=== PATIENT | female | born 2005 | race African-American/Black ===

== ENCOUNTER 2025-08-02 14:14 | Inpatient (IN) | payer BC, SELFPAY ==
[2025-08-02 14:25] VITALS: BP 120/70; PULSE 80; O2SAT 100; BMI 20.1
[2025-08-02 14:38] VITALS: BP 133/70; PULSE 81; RESP 18; TEMP 37.1; O2SAT 100
[2025-08-02 14:51] LABS: MANUAL DIFF FLAG NO
[2025-08-02 14:54] LABS: Hematocrit 36.1 % (37.0-47.0); Hemoglobin 12.0 g/dl (12.0-16.0); Imm Gran Abs Auto 0.01 X10*3/uL (0.00-0.03); Imm Gran Pct Auto 0.2 % (0.0-0.4); Lymphocytes Absolute Auto 2.4 X10*3/uL (1.2-4.9); Mean Corpuscular HGB Conc 33.2 g/dl (31.0-35.0); Mean Corpuscular Hemoglobin 29.1 pg (27.0-33.0); Mean Corpuscular Volume 87.6 fL (80.0-98.0); NRBC Abs Auto 0.000 X10*3/uL (0.0-0.012); NRBC Pct Auto 0.0 /100WBC (0.0-0.2); Platelet Count 238 X10*3/uL (160-400); Red Blood Count 4.12 X10*6/uL (4.20-5.50); UPreg QC Valid YES; White Blood Count 4.3 X10*3/uL (4.8-10.8)
[2025-08-02 14:55] LABS: Appearance Urine Clear; Glucose Urine UA Negative (Negative); PH 8.0 (5.0-9.0); Specific Gravity - Urine 1.010 (1.005-1.025)
[2025-08-02 15:11] LABS: Cannabinoid Screen Urine POSITIVE (Not Detect)
[2025-08-02 15:16] LABS: Alanine Aminotransferase 11 U/L (0-31); Albumin Level 4.6 g/dL (3.5-5.0); Alkaline Phosphatase 42 U/L (39-117); Anion Gap 10 (12-20); Aspartate Amino Transferase 23 U/L (5-31); Blood Urea Nitrogen 6 mg/dL (9-16); Calcium 9.3 mg/dL (8.4-10.2); Carbon Dioxide 26 mmol/L (22-29); Chloride 109 mmol/L (96-108); Creatinine Clr Calc Pharmacy 85.1; Estimated Glomerular Filt Rate > 60; Potassium 4.0 mmol/L (3.3-5.1); Sodium 141 mmol/L (135-145); Total Protein 6.9 g/dL (6.5-8.0)
--- NOTE | 2025-08-02 15:33 | ED.GENADULT ---
HPI - General Adult General Chief complaint: Psychiatric Symptoms Stated complaint: SEC 12 BY [facility] FOR SI Time Seen by Provider: 08/02/25 14:25 Source: patient Mode of arrival: ambulatory Limitations: no limitations History of Present Illness ED Provider: KENNEDY Enrique HPI narrative: Chief Complaint: ?I?m having really strong suicidal thoughts and worsening depression.? History of Present Illness: The patient is a 20-year-old female presenting after reporting escalating suicidal thoughts accompanied by a worsening depressive state. She states that she has felt this way recently and has never felt comfortable discussing it before. When asked, she acknowledged having formulated a suicide plan in the past but did not elaborate on current intent or specifics. When asked about prior suicide attempts, the patient gave an unclear response regarding possible history of suicide attempt. She reports a known history of bipolar II disorder, anxiety, and depression.She denies any recent illness, denies auditory or visual hallucinations, and denies use of drugs, alcohol, or tobacco. No other acute medical complaints were voiced. Social history: Patient is a student at [employer] Related Data Home Medications ?Medication ?Instructions ?Recorded ?Confirmed norethindrone 1.5 mg-ethinyl 1 tab PO DAILY 08/02/25 08/02/25 estradiol 30 mcg(21)/iron 75 mg(7) tablet ( FE ()) Previous Rx's ?Medication ?Instructions ?Recorded hydroxyzine HCl 25 mg tablet 25 mg PO TID PRN Anxiety 30 days 08/05/25 #90 tabs lamotrigine 100 mg tablet 100 mg PO DAILY 30 days #30 tabs 08/05/25 mirtazapine 15 mg tablet 15 mg PO BEDTIME 30 days #30 tabs 08/05/25 trazodone 100 mg tablet 100 mg PO BEDTIME PRN insomnia 30 08/05/25 days #30 tabs Allergies Allergy/AdvReac Type Severity Reaction Status Date / Time No Known Allergies Allergy Verified 08/02/25 14:28 Review of Systems Review of Systems: Yes all other systems are reviewed and are negative PMFSH Past Medical History Attestation statement: The following information was validated with the patient. Source: old records reviewed and nursing notes reviewed Social History Social History Household Members: None Housing: Other Housing Other:: College D[employer] Patient Tobacco Use Status: Never used Tobacco Second Hand Smoke Exposure: No service: No Sexual orientation: Straight/Heterosexual Physical Exam ED Exam Exam: Appearance: Alert.? Oriented X3.? No acute distress.? Head: Normocephalic, atraumatic, no step-offs or deformities Eyes: Pupils equal, round and reactive to light.? Neck: Normal inspection.? Neck supple.? CVS: Normal heart rate and rhythm.? Pulses normal.? Respiratory: No respiratory distress.? Breath sounds normal.? Abdomen: Soft and nontender.? Skin: Skin warm and dry.? Normal skin color.? Normal skin turgor.? Extremities: No lower extremity edema.? No calf ttp. 5/5 strength to bilateral upper and lower extremities Back: No midline tenderness, no C-spine tenderness, full range of motion, no CVA tenderness bilaterally Neuro: Oriented X 3.? No motor deficit.? No sensory deficit. CN 2-12 intact Vital Signs: Vital Signs - 24 hr 08/02/25 14:38 08/02/25 21:12 08/03/25 06:38 Temperature 98.8 F 97.9 F 96.6 F L Pulse Rate 81 82 87 Respiratory Rate 18 Blood Pressure 133/70 110/75 94/58 L Pulse Oximetry 100 99 99 Oxygen Delivery Method Room Air Room Air Room Air BMI result Body Mass Index 20.1 vss Course Reevaluation(s) Reevaluation #1: CBC unremarkable no acute findings. Chemistry no acute findings eating intervention. UA clean. Marijuana positive. Ethanol negative. Time: 15:37 Reevaluation #2: Patient will be an adult BPH IPLOC placement section 12 in chart Time: 17:17 Reevaluation #3: 1:08 PM 08/03/2025 (Dr. Eddie Bergeron): Time: 13:08 Date: 08/03/25 Provider: Eddie Bergeron, Physician observation ended. Patient to be admitted as inpatient to psychiatry. Medications Administered Discontinued Medications Generic Name Dose Route Start Last Admin Trade Name Freq PRN Reason Stop Dose Admin Acetaminophen 650 mg 08/03/25 12:32 08/05/25 08:44 Acetaminophen 325 Mg Tablet PO 650 mg Q6H PRN Administration Headache/Pain, Scale 1-10 Hydroxyzine HCl 25 mg 08/02/25 17:17 12/11/25 15:21 Hydroxyzine Hcl 25 Mg Tablet PO 25 mg BID PRN Administration Anxiety Lamotrigine 50 mg 08/03/25 09:00 08/03/25 08:32 Lamotrigine 25 Mg Tablet PO 50 mg DAILY SANJUANITA Administration Lamotrigine 75 mg 08/04/25 09:00 08/04/25 09:17 Lamotrigine 25 Mg Tablet PO 75 mg DAILY SANJUANITA Administration Lamotrigine 100 mg 08/05/25 09:00 08/05/25 08:30 Lamotrigine 100 Mg Tablet PO 100 mg DAILY SANJUANITA Administration Mirtazapine 7.5 mg 08/02/25 21:00 08/03/25 20:54 Mirtazapine 7.5 Mg Tablet PO 7.5 mg BEDTIME SANJUANITA Administration Mirtazapine 15 mg 08/04/25 21:00 08/04/25 22:01 Mirtazapine 15 Mg Tablet PO 15 mg BEDTIME SANJUANITA Administration Trazodone HCl 100 mg 08/02/25 17:17 08/03/25 20:54 Trazodone Hcl 100 Mg Tablet PO 100 mg BEDTIME PRN Administration Insomnia Medical Decision Making Medical Decision Making [facility] Narrative: The patient presents with acute suicidal ideation on a background of bipolar II disorder, depression, and anxiety. She is medically stable for psychiatric evaluation. Problem #1: Suicidal Ideation / Worsening Depression Assessment: Patient endorses strong suicidal thoughts; past planning acknowledged, current specifics unclear. Unclear response regarding prior suicide attempt. No hallucinations or substance use reported. Plan: Care team consultation ? patient to be evaluated for safety, risk assessment, and disposition. Answer patient questions and provide emotional support. Problem #2: Bipolar II Disorder, Anxiety Assessment: Patient confirms prior diagnoses of bipolar II disorder and anxiety. Differential Diagnosis Differential Diagnoses: The differential diagnosis associated with the presentation includes Differential Diagnosis Psychiatric Symptoms: Major depressive episode (bipolar or unipolar) Mixed affective episode Medication-induced mood disorder Adjustment disorder Substance-induced mood disorder (despite denial of substance use) Primary psychotic disorder Admission/Observation Consideration of admission/observation: Escalation of care including admission/observation considered Lab Data [facility] Lab Attestation statement: I reviewed the patient's lab results. 08/02/25 14:43 08/04/25 13:00 Labs: Lab Results 08/02/25 08/02/25 Range/Units 14:43 14:44 WBC 4.3 L (4.8-10.8) X10*3/uL RBC 4.12 L (4.20-5.50) X10*6/uL Hgb 12.0 (12.0-16.0) g/dl Hct 36.1 L (37.0-47.0) % MCV 87.6 (80.0-98.0) fL MCH 29.1 (27.0-33.0) pg MCHC 33.2 (31.0-35.0) g/dl RDW 13.3 (11.0-16.0) % Plt Count 238 (160-400) X10*3/uL MPV 9.8 (9.4-12.3) fL Immature Gran % (Auto) 0.2 (0.0-0.4) % Neut % (Auto) 31.6 L (45-73) % Lymph % (Auto) 56.2 H (20-40) % [place] % (Auto) 9.7 (2-11) % Eos % (Auto) 1.6 (0-4) % Baso % (Auto) 0.7 (0-2) % Lymph # (Auto) 2.4 (1.2-4.9) X10*3/uL [place] # (Auto) 0.4 (0.1-1.2) X10*3/uL Eos # (Auto) 0.1 (0.0-0.4) X10*3/uL Baso # (Auto) 0.0 (0.0-0.2) X10*3/uL Abs Immat Gran (auto) 0.01 (0.00-0.03) X10*3/uL Absolute Neuts (auto) 1.4 L (2.0-8.3) x10*3/uL Absolute Nucleated RBC 0.000 (0.0-0.012) X10*3/uL Nucleated RBC % (auto) 0.0 (0.0-0.2) /100WBC Sodium 141 (135-145) mmol/L Potassium 4.0 (3.3-5.1) mmol/L Chloride 109 H (96-108) mmol/L Carbon Dioxide 26 (22-29) mmol/L Anion Gap 10 L (12-20) BUN 6 L (9-16) mg/dL Creatinine 0.83 (0.5-1.4) mg/dL Estim Creat Clear Calc 85.1 Estimated GFR > 60 Random Glucose 91 (60-115) mg/dL Calcium 9.3 (8.4-10.2) mg/dL Total Bilirubin 0.2 (0.0-1.0) mg/dL AST 23 (5-31) U/L ALT 11 (0-31) U/L Alkaline Phosphatase 42 (39-117) U/L Total Protein 6.9 (6.5-8.0) g/dL Albumin 4.6 (3.5-5.0) g/dL Urine Color Yellow Urine Appearance Clear Urine pH 8.0 (5.0-9.0) Ur Specific [place] 1.010 (1.005-1.025) Urine Protein Negative (Neg-Trace) mg/dL Urine Glucose (UA) Negative (Negative) mg/dL Urine Ketones Negative (Negative) mg/dL Urine Blood Negative (Negative) Urine Nitrite Negative (Negative) Ur Leukocyte Esterase Negative (Negative) Urine RBC 0-2 (0-2) /HPF Urine WBC 0-5 (0-5) /HPF Ur Squamous Epith Cells 0-2 (0-2) /HPF Urine Bacteria None Seen (None Seen) Hyaline Casts 0-2 (0-2) /LPF Urine Test NEGATIVE (NEGATIVE) Urine Opiates Screen Not Detected (Not Detect) Ur Buprenorphine Scrn Not Detected (Not Detect) ng/mL Ur Oxycodone Screen Not Detected (Not Detect) ng/mL Urine Methadone Screen Not Detected (Not Detect) ng/mL Urine Fentanyl Screen Not Detected (Not Detect) Ur Barbiturates Screen Not Detected (Not Detect) Ur Phencyclidine Scrn Not Detected (Not Detect) Ur Amphetamines Screen Not Detected (Not Detect) U Benzodiazepines Scrn Not Detected (Not Detect) Urine Cocaine Screen Not Detected (Not Detect) U Marijuana (THC) Screen POSITIVE H (Not Detect) Ethyl Alcohol < 10 mg/dL Independent Historian Clinical information obtained from an independent historian. History obtained from or confirmed by: EMS Critical Care Time Critical Care Time Critical Care Time: No Discharge Plan Discharge Clinical Impression: Depression, Bipolar disorder Patient Disposition: Admitted As Inpatient Interventions: Admission Worksheet (ED) Last Done: 12/10/25 13:32 Discharge Date/Time: 08/03/25 13:33
--- NOTE | 2025-08-02 16:32 | PC.NURSE ---
Pt is resting in her room and watching TV, she is guarded and states, she is fine. She is aware of the plan for IP admit and states she has been IP in the past.
[2025-08-02 21:12] VITALS: BP 110/75; PULSE 82; TEMP 36.6; O2SAT 99
--- NOTE | 2025-08-02 21:35 | PC.NURSE ---
Assumed care at 1845. Patient presents as calm/cooperative. Adherent to HS scheduled Mirtazapine. Requested PRN Trazodone for sleep. No apparent distress noted. Agreeable to alert staff if feeling unsafe. Will continue to monitor for safety.
--- OUTSIDE RECORDS SUMMARY | 2025-08-02 22:52 | XMS_ITS | Clinical Summary ---
Author Organization [facility] Address [address] [place] [address] Care Team Providers Care Meal Cook Name Role Phone Ref, Hasnopcp Primary Care Provider Unavailabl e Allergies Active Allergy Reactions Criticality Noted Date Comments Pollen Extracts Hives Low 02/06/2025 Medications levonorgestreL- ethinyl estrad (AVIANE,ALESSE, LESSINA) 0.1-20 mg-mcg per tablet Take 1 tablet by mouth once a day. Active hydrOXYzine HCL (ATARAX) 25 mg tablet Take 1 tablet (25 mg total) by mouth 2 times a day as needed for anxiety. 60 tablet 02/14/2025 Active mirtazapine (REMERON) 7.5 mg tablet Take 1 tablet (7.5 mg total) by mouth nightly. 30 tablet 02/14/2025 Active traZODone (DESYREL) 50 mg tablet Take 1 tablet (50 mg total) by mouth nightly as needed for sleep. 15 tablet 1 02/14/2025 Active Active Problems Problem Noted Date Diagnosed Date Mood disorder 02/06/2025 Assessment & Plan (02/09/2025 12:07 PM EDT): Psychiatric Assessment/Plan Patient's presentation raises concern for possible underlying bipolar spectrum disorder secondary to going days without sleeping but maintaining decent energy levels, increased risk taking activity especially sexualized behavior, description of past traumas includes bizarre details and unusual frequency raising concern for delusions. Patient also exhibits tangential thoughts and some grandiosity. However, also reports depressive symptoms and thoughts that she may be better off if she weren't even alive. Unclear family psychiatric history other than everyone has something. Mom has reported concern to the patient for a few years that she may be bipolar. Possibly a mixed episode. Hold Zoloft. Patient reports that she has been self tapering down from 100mg over the past two weeks. Start Latuda 20mg daily. Plan -Admit to the [facility] on a conditional voluntary status -Monitor safety on Q15 minute checks -Hold Zoloft -Start Latuda 20mg daily with food -Encourage engagement in milieu activities -Offer prns for sleep, anxiety, pain, fever, & GI distress as appropriate -Disposition planning per social work recommendations ' Social History Tobacco Use Types Packs/Day Years Used Date Smoking Tobacco: Former Cigarettes Smokeless Tobacco: Never Tobacco Cessation:Counseling Given: Not Answered Alcohol Use Standard Drinks/Week Comments Yes 2 (1 standard drink = 0.6 oz pur e alcohol) 1-2 shots weekly Comments Unknown Sex and Gender Information Value Date Recorded Sex Assigned at Female 02/07/2025 9:28 AM EDT Legal Sex Female 5:40 PM EDT Gender Identity Not on file Sexual Orientation Not on file Last Filed Vital Signs Vital Sign Reading Time Taken Comments Blood Pressure 114/73 02/14/2025 7:25 AM EDT Pulse 68 02/14/2025 7:25 AM EDT Temperature 36.6 C (97.8 F) 02/14/2025 7:25 AM EDT Respiratory Rate 16 02/14/2025 7:25 AM EDT Oxygen Saturation 98% 02/14/2025 7:25 AM EDT Inhaled Oxygen Concentration - - Weight 52.7 kg (116 lb 3.2 oz) 02/06/2025 9:31 P M EDT Height 162.2 cm (5' 3.86 ) 02/06/2025 9:26 PM ED T Body Mass Index 20.03 02/06/2025 9:26 PM EDT Plan of Treatment Health Maintenance Due Date Last Done Comments HIV Screening 2005 1 Week [facility] 2005 1 Month [facility] 2005 2 Month [facility] 2005 4 Month [facility] 2005 6 Month [facility] 2005 9 Month [facility] 02/10/2006 MMR Vaccines (1 of 1 - Stand sonu series) 2006 12 Month [facility] 05/23/2006 15 Month [facility] 08/09/2006 18 Month [facility] 11/07/2006 24 Month [facility] 05/06/2007 30 Month [facility] 09/09/2007 3 to 21 Year [facility] 2008 Well Child Check 2008 DTaP,Tdap,and Td Vaccines (1 - Tdap) 2012 Varicella Vaccines (1 of 2 - 13+ 2-dose series) 2018 HPV Vaccines (1 - 3-dose series) 2020 Meningococcal Vaccine (1 - 2 -dose series) 2021 Hepatitis B Vaccines (1 of 3 - 19+ 3-dose series) 2024 Influenza Vaccine (#1) 2025 COVID-19 Vaccine (1 - 2024-2 6 season) 2025 Pneumococcal Vaccine: Pediat last (0-5 Years) and At-Risk Patients (6-50 Years) Aged Out No longer eligible b ased on patient's age to complete this topic Insurance NON [employer] [facility] Advance Directives * Presumed Full Code (Latest Code Status on File) Date Activated Date Inactivated Comments 02/06/2025 8:39 PM 02/14/2025 3:25 PM Care Teams Meal Cook Relationship Specialty Start Date End Date Ref, Hassammy DO NOT EDIT THIS RECORD VIA PROVIDER ON THE FLY PCP - General Cold Strip Feeder 02/07/25
--- OUTSIDE RECORDS SUMMARY | 2025-08-02 22:52 | XMS_ITS | Clinical Summary ---
Author Organization [facility] Address [address] [address] Phone Care Team Providers Care Clinical Research Manager Name Role Phone Pcp, Unknown Primary Care Provider Unavailabl e Allergies Active Allergy Reactions Criticality Noted Date Comments Lactose 07/16/2024 Medications No known medications Active Problems Problem Noted Date Diagnosed Date Suicidal ideations 02/06/2025 Social History Tobacco Use Types Packs/Day Years Used Date Smoking Tobacco: Never Assessed Education Answer Date Recorded Are you interested in more education? Not on addi e 07/16/2024 Are you concerned about learning? Not on file 07/16/2024 No 07/16/2024 No 07/16/2024 Digital Access Answer Date Recorded No 07/16/2024 No 07/16/2024 Reliable internet access at home? Not on file 07/16/2024 Device with a working camera? Not on file Intimate Partner Violence Answer Date R ecorded Are you denied basic needs s uch as food, clothing, or medical care? No 02/06/2025 In the past 12 months have y ou been in a relationship with a person who hurts, threatens, or tries to control you? No 02/06/2025 Are you denied basic needs s uch as food, clothing, or medical care? No 02/06/2025 In the past 12 months have y ou been in a relationship with a person who hurts, threatens, or tries to control you? No 02/06/2025 Comments Unknown Sex and Gender Information Value Date Recorded Sex Assigned at Female 07/16/2024 9:14 AM EST Legal Sex Female 2:04 AM EST Gender Identity Female 07/16/2024 9:14 AM EST Sexual Orientation Straight 07/16/2024 9: 14 AM EST Last Filed Vital Signs Vital Sign Reading Time Taken Comments Blood Pressure 128/79 02/06/2025 5:48 PM EDT Pulse 97 02/06/2025 5:48 PM EDT Temperature 36.9 C (98.4 F) 02/06/2025 5:48 PM EDT Respiratory Rate 17 02/06/2025 5:48 PM EDT Oxygen Saturation 100% 02/06/2025 5:48 PM EDT Inhaled Oxygen Concentration - - Weight 52 kg (114 lb 10.2 oz) 02/06/2025 12:01 P M EDT Height 162.6 cm (5' 4 ) 02/06/2025 12:01 PM EDT Body Mass Index 19.68 02/06/2025 12:01 PM EDT Plan of Treatment Health Maintenance Due Date Last Done Comments MMR VACCINES (1 of 1 - Stand soun series) 2006 DEVELOPMENTAL/BEHAVIORAL SCR EENING (PHQ, PSC, or SWYC) 2008 COMBINED DTaP,Tdap,Td (1 - Tdap) 2012 DEPRESSION SCREENING 2017 SMOKING Hx and SMOKELESS TOB ACCO SCREENING 2018 VARICELLA VACCINES (1 of 2 - 13+ 2-dose series) 2018 HPV VACCINES (1 - 3-dose series) 2020 CHLAMYDIA SCREENING 2021 MENINGOCOCCAL VACCINES (B) ( 1 of 2 - Standard) 2021 ADOLESCENT UNIVERSAL LIPID SCREENING 2022 HEPATITIS C SCREENING 2023 HIV ONE-TIME SCREENING (18-6 5 YEARS) 2023 INFLUENZA VACCINE (#1) 2025 COVID-19 VACCINE (1 - 2024-2 6 season) 2025 HEPATITIS A VACCINES Aged Out No long er eligible based on patient's age to complete this topic HIB VACCINES Aged Out No longer eligi ble based on patient's age to complete this topic MENINGOCOCCAL VACCINES (ACWY) Aged Out No longer eligible based on patient's age to complete this topic PNEUMOCOCCAL VACCINES (0-49 years) Aged Out No longer eligible based on patient's age to complete this topic Medical Devices Not on file Insurance [facility] PPO EPO Care Teams Clinical Research Manager Relationship Specialty Start Date End Date Pcp, Unknown PCP - General 07/16/24 Additional Source Comments The information contained in this document represents components of the legal health record. It is not the complete legal health record.[facility]
--- NOTE | 2025-08-03 | ECG_ITS ---
Test Reason : r/o prolonged qt Blood Pressure : */* mmHG Vent. Rate : 66 BPM Atrial Rate : 66 BPM P-R Int : 148 ms QRS Dur : 78 ms QT Int : 400 ms P-R-T Axes : 70 80 58 degrees QTcB Int : 419 ms Normal sinus rhythm with sinus arrhythmia Normal ECG No previous ECGs available Referred By: Figueroa Christiansen Electronically Signed By: REESE SONG MD
[2025-08-03 06:38] VITALS: BP 94/58; PULSE 87; TEMP 35.9; O2SAT 99
--- NOTE | 2025-08-03 07:43 | PC.NURSE ---
Assumed care of patient at 0645, patient appears to be in no apparent distress this am, sleeping, respirations even and unlabored. Continue plan of care for IPLOC
--- NOTE | 2025-08-03 09:01 | PHA.MEDREC ---
Pharmacy Consult ? Medication Reconciliation Pharmacy has reviewed the medication reconciliation completed by nursing.
--- NOTE | 2025-08-03 11:20 | PC.NURSE ---
administrative staff supervisor from [facility] called to check in with patient, pt currently asleep, product support representative John plans to call back later in the day
--- NOTE | 2025-08-03 11:27 | MHC.EDTECH ---
During EKG this tech saw a beaded waist bracelet on patients waist. Patient handed over easily when asked. Added to patient belongings and belongings list.
[2025-08-03 13:46] VITALS: BP 130/66; PULSE 84; RESP 17; TEMP 36.9; O2SAT 99
[2025-08-03 13:47] VITALS: BMI 24.4
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
--- NOTE | 2025-08-03 16:48 | PC.NURSE ---
Pt reported already receiving her flu vaccine for this season
[2025-08-03 20:00] VITALS: BP 118/76; PULSE 96; RESP 18; TEMP 37.4; O2SAT 99
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
[2025-08-04 07:00] VITALS: BMI 25.0
[2025-08-04 08:00] VITALS: BP 101/59; PULSE 81; TEMP 36.4; O2SAT 99
--- NOTE | 2025-08-04 08:33 | P.CONHOSP_ITS ---
History of Present Illness Data of Consult Service Date: 08/04/25 Primary Care Provider: Skyler Physician HPI Reason for consult: Medical Consult 20-year-old female with past medical history of bipolar 2 disorder, anxiety and depression, presented on a section 12 from her college with worsening depression and escalating suicidal thoughts. Initial workup revealed a CBC without anemia or leukocytosis, chemistry unremarkable, urinalysis without evidence of infection, tox screen positive for marijuana. Ethanol negative. On exam she has no medical concerns. Wants to go home tomorrow. Review of Systems 2 Review of Systems: Denies any shortness of breath, chest pain, headaches, dysuria, abdominal pain or discomfort, nausea, vomiting or diarrhea. Denies fever or chills. [facility] Social History Household Members: None Housing: Other Housing Other:: College Dorm Patient Tobacco Use Status: Never used Tobacco Smoked in Last 30 Days: No Patient Interested in Nicotine Replacement: No Second Hand Smoke Exposure: No Currently Displaying Signs/Symptoms of Drug Intoxication Withdrawal: No Have you been hit, kicked, punched, or otherwise hurt by someone within the past year? If so, by whom?: No Do you feel safe in your current relationship?: No Current Relationship Is there a partner from a previous relationship who is making you feel unsafe now?: No Are you made to feel afraid or neglected: No [facility] Healthcare Practices: Christianity Advance Directives: No Advance Directives Information Provided: No Do you have thoughts of harming others: None Do you have a plan to hurt others: No Plan Recently lost weight without trying: No How much weight loss: Not applicable Eating poorly because of decreased appetite: No Nutrition screen score: 0 Nutrition Risks: No Nutritional Risk Patient : No : No Poor oral hygiene: No Meds Allergies Allergy/AdvReac Type Severity Reaction Status Date / Time No Known Allergies Allergy Verified 08/02/25 14:28 Active Medications: Current Medications Acetaminophen (Acetaminophen 325 Mg Tablet) 650 mg PO Q6H PRN PRN Reason: Headache/Pain, Scale 1-10 Al Hydroxide/Mg Hydroxide (Magnesium Hydrox/Alum Hydrox 30 Ml Oral.Susp) 30 ml PO Q6H PRN PRN Reason: Heartburn/Nausea Hydroxyzine HCl (Hydroxyzine Hcl 25 Mg Tablet) 25 mg PO BID PRN PRN Reason: Anxiety Last Admin: 08/03/25 20:54 Dose: 25 mg Lamotrigine (Lamotrigine 25 Mg Tablet) 75 mg PO DAILY SANJUANITA Magnesium Hydroxide (Milk Of Magnesia 30 Ml Oral.Susp) 30 ml PO DAILY PRN PRN Reason: Constipation Mirtazapine (Mirtazapine 7.5 Mg Tablet) 7.5 mg PO BEDTIME SANJUANITA Last Admin: 08/03/25 20:54 Dose: 7.5 mg Nicotine Polacrilex (Nicotine Polacrilex 2 Mg Gum) 2 mg BUCCAL Q2H PRN PRN Reason: Nicotine Cravings Non-Formulary Medication (Norethindrone-E.Estradiol-Iron [ ()]) 1 tab PO DAILY SANJUANITA Trazodone HCl (Trazodone Hcl 100 Mg Tablet) 100 mg PO BEDTIME PRN PRN Reason: Insomnia Last Admin: 08/03/25 20:54 Dose: 100 mg Home Medications ?Medication ?Instructions ?Recorded ?Confirmed ?Last Taken ?Type hydroxyzine HCl 25 mg tablet 25 mg PO BID PRN Anxiety 08/02/25 08/02/25 08/01/25 History lamotrigine 25 mg tablet 50 mg PO DAILY 08/02/25 12/0 05/1908/01/25 History mirtazapine 7.5 mg tablet 7.5 mg PO BEDTIME 08/02/25 1 10/03/24 08/01/25 History norethindrone 1.5 mg-ethinyl 1 tab PO DAILY 08/02/25 1 10/03/24 Unknown History estradiol 30 mcg(21)/iron 75 mg(7) tablet ( ()) trazodone 50 mg tablet 100 mg PO BEDTIME PRN Insomn ia 08/02/25 08/02/25 08/01/25 History Physical Exam 2 Vital Signs and Narrative: Vital Signs: Last Vital Signs Temp 97.5 F 08/04/25 08:00 Pulse 81 08/04/25 08:00 Resp 18 08/03/25 20:00 BP 101/59 L 08/04/25 08:00 Pulse Ox 99 08/04/25 08:00 O2 Del Method Room Air 08/04/25 08:00 BMI result Body Mass Index 24.4 Alert and oriented X3, calm and cooperative. Answers questions. Neuro: CN II-X11 intact, no deficits, visual acuity intact EYES: PERRLA, EOM intact ENT: Hearing intact, MMM Cardiac: S1 S2 RRR, No ectopy Pulmonary: lungs clear to auscultation, No increased WOB. Abdominal: BS active in all 4 quadrants, no guarding or tenderness MSK: Strength 5/5 upper and lower extremities : Deferred Extremities: No edema in lower extremities Psych: Mood stable, Quiet and cooperative. Skin: Warm and dry, Intact Results Labs 08/02/25 14:43 08/04/25 13:00 Assessment and Plan (1) Depression: Status: Acute Plan 20-year-old female with a past medical history of PTSD/bipolar 2 disorder/depression the ED with suicidal ideation on a section 12 from her school. Now admitted for inpatient stabilization. PTSD/bipolar 2 disorder/depression//SI Treatment per psychiatric team Thank you for allowing me to participate in the care of this patient. Will follow with you, please notify medical provider with any changes in condition or concerns.
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
[2025-08-04 13:34] LABS: Alanine Aminotransferase 14 U/L (0-31); Albumin Level 5.1 g/dL (3.5-5.0); Alkaline Phosphatase 45 U/L (39-117); Anion Gap 13 (12-20); Aspartate Amino Transferase 29 U/L (5-31); Blood Urea Nitrogen 10 mg/dL (9-16); Calcium 9.8 mg/dL (8.4-10.2); Carbon Dioxide 24 mmol/L (22-29); Chloride 106 mmol/L (96-108); Cholesterol 193 mg/dL (<200); Creatinine Clr Calc Pharmacy 97.2; Estimated Glomerular Filt Rate > 60; HDL Cholesterol 50 mg/dL (>40); Magnesium 1.9 mg/dL (1.6-2.6); Potassium 4.2 mmol/L (3.3-5.1); Sodium 139 mmol/L (135-145); Total Protein 7.9 g/dL (6.5-8.0); Triglycerides 94 mg/dL (<150)
[2025-08-04 13:50] LABS: Free T4 (Free Thyroxine) 0.92 ng/dL (0.71-1.85); Thyroid Stimulating Hormone 1.39 uIU/mL (0.32-4.0)
[2025-08-04 14:02] LABS: Folate 11.9 ng/mL (> or = 4.0); Vitamin B12 755 pg/mL (200-900)
[2025-08-04 19:49] VITALS: BP 117/64; PULSE 90; RESP 18; TEMP 37.5; O2SAT 98
[2025-08-05 08:00] VITALS: BP 122/57; PULSE 75; TEMP 37.3; O2SAT 99
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
== END 2025-08-05 11:10 | disposition home or self-care (01) | DRG 753 ==
LOC: HO.ED 17:17 → HO.PM5 08-03 12:39
PROVIDERS: Admitting Provider Clinical Nurse Specialist Psychiatric/Mental Health, Adult; Emergency Provider Emergency Medicine Emergency Medical Services; Visit Provider Clinical Nurse Specialist Psychiatric/Mental Health, Adult
DX: F31.81 Bipolar II disorder (principal); R45.851 Suicidal ideations; F43.10 Post-traumatic stress disorder, unspecified; Z79.899 Other long term (current) drug therapy
CPT/HCPCS: 36415; 80053; 80061; 80307; 81001; 81025; 82607; 82746; 83036; 83735; 84439; 84443; 85025; 93005; 99285; S9485

== ENCOUNTER → 2025-08-03 10:54 | Outpatient (BNV) | payer BC, SELFPAY | PROVIDERS: Admitting Provider Clinical Nurse Specialist Psychiatric/Mental Health, Adult; Emergency Provider Emergency Medicine Emergency Medical Services; Visit Provider Internal Medicine Cardiovascular Disease | DX: Z03.89 Encounter for observation for other suspected diseases and conditions ruled out (principal) | CPT/HCPCS: 93010 ==

== ENCOUNTER → 2025-08-03 12:38 | Outpatient (BNV) | payer BC, SELFPAY | PROVIDERS: Admitting Provider Clinical Nurse Specialist Psychiatric/Mental Health, Adult; Emergency Provider Emergency Medicine Emergency Medical Services; Visit Provider Psychiatry & Neurology Psychiatry | DX: F31.81 Bipolar II disorder (principal); F43.11 Post-traumatic stress disorder, acute | CPT/HCPCS: 90792; 99232; 99239 ==

== ENCOUNTER → 2025-08-03 12:38 | Outpatient (BNV) | payer BC, SELFPAY | PROVIDERS: Admitting Provider Clinical Nurse Specialist Psychiatric/Mental Health, Adult; Emergency Provider Emergency Medicine Emergency Medical Services; Visit Provider Nurse Practitioner Family | DX: Z02.2 Encounter for examination for admission to residential institution (principal) | CPT/HCPCS: 99429 ==